=== PATIENT | male | born 1965 | race Caucasian/White ===

== ENCOUNTER 2024-09-25 07:04 | Emergency (ER) | payer BC, SELFPAY ==
[2024-09-25] VITALS (20 sets, daily range): BP systolic 111–150; BP diastolic 65–87; PULSE 81–110; RESP 9–23; TEMP 37.1; O2SAT 93–98; BMI 34.4
--- NOTE | 2024-09-25 07:39 | EKG_ITS ---
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
[2024-09-25 09:57] LABS: Add Manual Diff / Slide Review NO; Hematocrit 44.3 % (41-53); Hemoglobin 14.8 g/dL (13.5-17.5); Lymphocytes Absolute Auto 700 /uL (1100-4500); Mean Corpuscular HGB Conc 33.4 % (30-36); Mean Corpuscular Hemoglobin 32.1 PG (26-34); Mean Corpuscular Volume 96.2 fL (80-100); Platelet Count 186 X10^3/uL (150-400)
[2024-09-25 10:03] LABS: Alanine Aminotransferase 26 IU/L (<50); Albumin 4.1 g/dL (3.5-5.0); Albumin Globulin Ratio 1.3 (1.0-2.8); Alkaline Phosphatase 58 U/L (38-126); Blood Urea Nitrogen 10 mg/dL (9-20); Calcium 8.7 mg/dL (8.4-10.2); Carbon Dioxide 25 mmol/L (22-32); Chloride 101 mmol/L (98-107); Estimated Glomerular Filt Rate > 60 mL/min (>60); Globulin 3.1 g/dL (1.7-4.1); Glucose 111 mg/dL (70-99); HEMOLYSIS 24 (0-50); Lipase 62 U/L (23-300); Potassium 4.3 mmol/L (3.4-5.1); Sodium 135 mmol/L (137-145); Total Protein 7.2 g/dL (6.3-8.2)
--- NOTE | 2024-09-25 10:29 | DI.RAD.S_ITS ---
PROCEDURE: XR KUB INDICATIONS: abdominal discomfort TECHNIQUE: One view of the abdomen acquired. COMPARISON: None. FINDINGS: This study is limited by body habitus. Surgical changes and devices: A lap band is seen. Left pelvic laparoscopic anchors are seen. Bowel: Bowel gas pattern is normal. The volume of stool within the colon is not excessive. Soft tissues: Calcified gallstones are seen. Visualized solid organ contours appear normal in size. Bones: No suspicious bony lesions. Age-appropriate bony degenerative changes are seen. IMPRESSION: No debbi acute abnormality is seen by plain film. Gallstones are noted. Postoperative and degenerative changes are seen. Dictated by: Sky Lane M.D. on 09/25/2024 at 9:57 Approved by: Sky Lane M.D. on 09/25/2024 at 9:58
[2024-09-25 11:37] LABS: Culture Indicated Urine Specimen Cultured
[2024-09-25] MEDS: ACETAMINOPHEN 325 MG TABLET 975 MG PO (13:48)
--- NOTE | 2024-09-25 13:54 | DI.CT.S_ITS ---
PROCEDURE: CT ABDOMEN PELVIS W CON INDICATIONS: ying rectal pain and abdomen pain TECHNIQUE: After the administration of intravenous contrast, axial sections acquired from the lung bases to the pubic symphysis. Coronal and sagittal reformats were performed. For radiation dose reduction, the following was used: automated exposure control, adjustment of mA and/or kV according to patient size. COMPARISON: [facility], CR, XR KUB, 09/25/2024, 10:28. FINDINGS: Image quality: Diagnostic. Lower Chest: No significant findings. ABDOMEN: Liver: No solid mass. Gallbladder: Numerous gallstones are seen. No additional CT findings of cholecystitis are seen. Biliary ducts: No biliary dilation. Pancreas: No ductal dilation. Spleen: Size is within normal limits. Adrenal Glands: No adrenal nodules. Kidneys and Ureters: No hydronephrosis. No solid mass. No complex renal cystic lesion which requires follow up. Stomach and Bowel: A lap band is seen. The stomach is decompressed at the time of this study, limiting its evaluation. No dilated loops of small bowel are seen. In this patient with this given history, scrutiny is given to the rectum. No significant perirectal inflammatory change. No abnormal wall thickening is seen. Colonic diverticulosis is seen, without findings of active diverticulitis. A normal appendix is noted. Peritoneum: No abnormal intraperitoneal fluid. No free air. Ventral Wall: A mild to moderate periumbilical hernia is seen, containing fat. Abdominal Nodes: No retroperitoneal or mesenteric adenopathy by size criteria. Vessels: Aorta and inferior vena cava are normal in size. PELVIS: Pelvic Organs: The prostate is prominent, measuring 5.4 cm transversely. Bladder: No bladder wall thickening, accounting for underdistention. Pelvic Nodes: No enlarged lymph nodes. Miscellaneous: No inguinal hernias are seen. Bones: No aggressive osseous abnormality. Age-appropriate bony degenerative changes are seen. IMPRESSION: No significant perirectal abnormality is seen. Moderate sigmoid diverticulosis, without debbi active diverticulitis. Additional findings: Lap band Gallstones [id number] fat containing periumbilical hernia Dictated by: Sky Lane M.D. on 09/25/2024 at 13:26 Approved by: Sky Lane M.D. on 09/25/2024 at 13:30
--- NOTE | 2024-09-25 14:38 | PC.NURSE ---
Patient has been successfully ambulating between room and restroom and to diagnostic imaging independently.
--- NOTE | 2024-09-25 14:51 | ED_ITS ---
HPI - Abdominal Pain General Chief Complaint: Abdominal Pain Stated Complaint: Can't urinate or pass stool 3days Time Seen by Provider: 09/25/24 10:20 Source: patient Mode of arrival: Ambulatory History of Present Illness HPI narrative: 59-year-old male who has been having some difficulty urinating as well as having a BM in the past 2-3 days. He does still urinate and pass stool but not as much as he usually does. Currently he complains of some discomfort over his bladder area as well. He denies any blood in the urine or stool. He denies any other GI or symptoms. All other 14 point review of systems negative Related Data Allergies Allergy/AdvReac Type Severity Reaction Status Date / Time No Known Drug Allergies Allergy Verified 09/25/24 07:17 Review of Systems Review of Systems ROS Unobtainable: All systems reviewed & are unremarkable except as noted in HPI and below Patient History Social History Smoking Status: Never smoker Smoking Status: Never smoker Exam Narrative Exam Narrative: General: Patient appears to be in no acute distress, acting appropriately Head: normocephalic, atraumatic, HEENT: Pupils equal round reactive, eyes tracking well, neck supple, no JVD Heart: regular rate and rhythm, no murmurs, rubs, or gallops heard Lungs: clear to auscultation, no adventitious sounds Abdomen: soft , mildly tender to palpation over bladder area, nondistended, positive bowel sounds Neurological: no focal neurological signs, moving all extremities well, alert and oriented x3, Psych: good judgment ,good insight, mood is normal. Initial Vital Signs Initial Vital Signs: Vital Signs Temperature 98.8 F 09/25/24 07:17 Pulse Rate 110 H 09/25/24 07:17 Respiratory Rate 18 09/25/24 07:17 Blood Pressure 150/87 H 09/25/24 07:17 Pulse Oximetry 96 09/25/24 07:17 Oxygen Delivery Method Room Air 09/25/24 07:17 Course Course Course Narrative: We will workup the patient for this decrease in urination. CT abdomen and pelvis showed diverticulosis picture with gallstones. Patient's issue could potentially be from this diverticulosis. Orders Ordered: ED Orders 09/25/24 07:21 EKG-12 Lead Stat 09/25/24 07:28 Urine Culture Stat Urine Microscopic Stat 09/25/24 09:40 Complete Blood Count AUTO DIFF Stat Comprehensive Metabolic Panel Stat Lipase Stat 09/25/24 10:29 XR KUB Stat 09/25/24 13:54 CT abdomen pelvis w con Stat Sodium Chloride (Normal Saline 0.9%) 1,000 mls @ 1,000 mls/hr IV BOLUS ONE Stop: 09/25/24 15:53 Last Admin: 09/25/24 15:10 Dose: 1,000 mls/hr Documented By: JOHANA Ondansetron HCl (Ondansetron 4 Mg/2 Ml Inj) 4 mg IV NOW PRN PRN Reason: Nausea And Vomiting Ondansetron HCl (Ondansetron 4 Mg Odt) 4 mg PO NOW PRN PRN Reason: Nausea And Vomiting Discontinued Medications Acetaminophen (Acetaminophen 325 Mg Tablet) 975 mg PO NOW ONE Stop: 09/25/24 13:17 Last Admin: 09/25/24 13:48 Dose: 975 mg Documented By: BLAIR Polyethylene Glycol (Polyethylene Glycol 3350 17 Gm Powd.Pack) 17 gm PO NOW ONE Stop: 09/25/24 11:40 Last Admin: 09/25/24 13:00 Dose: 17 gm Documented By: RB Reevaluation(s) Reevaluation #1: Upon re-evaluation, patient is urinating better feels little bit more comfortable and is ready be discharged. Vital Signs Vital signs: Vital Signs - 8 hr 09/25/24 07:17 09/25/24 09:46 09/25/24 09:48 Temperature 98.8 F Pulse Rate 110 H 92 H 92 H Respiratory Rate 18 Blood Pressure 150/87 H Pulse Oximetry 96 96 96 Oxygen Delivery Method Room Air 09/25/24 09:48 09/25/24 10:00 09/25/24 10:00 Temperature Pulse Rate 88 Respiratory Rate 11 L Blood Pressure 128/76 119/69 Pulse Oximetry 95 Oxygen Delivery Method 09/25/24 10:30 09/25/24 10:30 09/25/24 11:07 Temperature Pulse Rate 91 H 89 Respiratory Rate 12 Blood Pressure 128/69 Pulse Oximetry 96 98 Oxygen Delivery Method 09/25/24 11:09 09/25/24 11:09 09/25/24 11:30 Temperature Pulse Rate 87 Respiratory Rate 11 L Blood Pressure 134/79 128/78 Pulse Oximetry 98 Oxygen Delivery Method 09/25/24 11:30 09/25/24 12:00 09/25/24 12:00 Temperature Pulse Rate 86 87 Respiratory Rate 14 14 Blood Pressure 139/77 Pulse Oximetry 98 96 Oxygen Delivery Method 09/25/24 12:30 09/25/24 12:31 09/25/24 12:31 Temperature Pulse Rate 87 96 H Respiratory Rate 16 14 Blood Pressure 132/73 Pulse Oximetry 97 97 Oxygen Delivery Method 09/25/24 13:18 09/25/24 13:19 09/25/24 13:19 Temperature Pulse Rate 97 H 94 H Respiratory Rate 23 19 Blood Pressure 141/70 H Pulse Oximetry 98 Oxygen Delivery Method 09/25/24 13:30 09/25/24 13:30 09/25/24 14:00 Temperature Pulse Rate 90 94 H Respiratory Rate 15 Blood Pressure 138/71 Pulse Oximetry 97 96 Oxygen Delivery Method 09/25/24 14:00 Temperature Pulse Rate Respiratory Rate Blood Pressure 125/76 Pulse Oximetry Oxygen Delivery Method MDM - Abdominal Pain Differential Diagnosis Differential diagnosis: Likely diverticulitis, gastroenteritis, small bowel obstruction and other (diverticulosis ) Lab Data 09/25/24 09:40 09/25/24 09:40 Labs: Lab Results 09/25/24 09/25/24 Range/Units 07:28 09:40 WBC 12.9 H (4.5-11.0) X10^3/uL RBC 4.61 (4.5-5.9) X10^6/uL Hgb 14.8 (13.5-17.5) g/dL Hct 44.3 (41-53) % MCV 96.2 (80-100) fL MCH 32.1 (26-34) PG MCHC 33.4 (30-36) % RDW 14.8 (11.6-14.8) % Plt Count 186 (150-400) X10^3/uL Neut % (Auto) 85.8 H (50-75) % Lymph % (Auto) 5.5 L (25-40) % [place] % (Auto) 8.1 (3-14) % Eos % (Auto) 0.1 L (2-4) % Baso % (Auto) 0.5 (0-2) % Neut # (Auto) 39424 H (5277-3972) /uL Lymph # (Auto) 700 L (0431-7355) /uL [place] # (Auto) 1000 H (0-900) /uL Eos # (Auto) 0 (0-450) /uL Baso # (Auto) 100 (0-100) /uL Sodium 135 L (137-145) mmol/L Potassium 4.3 (3.4-5.1) mmol/L Chloride 101 (98-107) mmol/L Carbon Dioxide 25 (22-32) mmol/L BUN 10 (9-20) mg/dL Creatinine 1.11 (0.66-1.25) mg/dL Estimated GFR > 60 (>60) mL/min BUN/Creatinine Ratio 9.0 (6-22) Glucose 111 H (70-99) mg/dL Calcium 8.7 (8.4-10.2) mg/dL Total Bilirubin 0.8 (0.2-1.3) mg/dL AST 35 (17-59) IU/L ALT 26 (<50) IU/L Alkaline Phosphatase 58 (38-126) U/L Total Protein 7.2 (6.3-8.2) g/dL Albumin 4.1 (3.5-5.0) g/dL Globulin 3.1 (1.7-4.1) g/dL Albumin/Globulin Ratio 1.3 (1.0-2.8) Lipase 62 (23-300) U/L Urine RBC 1-5/hpf (0-5/HPF) Urine WBC 5-10/hpf H (0-5/HPF) Ur Squamous Epith Cells None seen (0-5/HPF) Urine Bacteria Few (2-10) H (None) Ur Culture Indicated? Specimen cultured Vol Urine Centrifuged 10ml (spun) Point of care testing: Urine Dip Bedside Urine Glucose Negative Bedside Urine Bilirubin - Negative Bedside Urine Ketone +++ 80 Urine Specific [place] 1.010 Bedside Urine Occult Blood + Bedside Urine pH 7.0 Bedside Urine Protein +/- 15 Bedside Urine Urobilinogen - Negative Bedside Urine Nitrite - Negative Bedside Urine Leukocytes +/- [address] scan - abdomen/pelvis: Radiologist's Impression: No significant perirectal abnormality is seen. Moderate sigmoid diverticulosis, without debbi active diverticulitis. [facility] [place] Narrative Medical decision making narrative: 59-year-old male with a little bit of abdominal this current infarct and decreased urination presents with a sigmoid diverticulosis picture. Patient advised on going on a soft liquid diet for now until problems resolved. Patient also told to hydrate better as well. Discharge Plan Departure Patient Disposition: Home Clinical Impression: Diverticulosis Instructions: DI for Diverticulosis Activity Restrictions/Additional Instructions: Hydrate well and go on diverticulosis diet. Go on a soft liquid diet until problems resolved. Can follow up sooner if worsening issue. Stand Alone Forms: Patient Portal/API
[2024-09-25] MEDS: SODIUM CHLORIDE 0.9% 1,000 ML 1000 ML IV (15:10)
== END 2024-09-25 16:59 | disposition home or self-care (01) ==
PROVIDERS: Emergency Provider Family Medicine
DX: K57.90 Diverticulosis of intestine, part unspecified, without perforation or abscess without bleeding (principal)
CPT/HCPCS: 36415; 51798; 74018; 74177; 80053; 81003; 81015; 83690; 85025; 87086; 93005; 96360; 96361; 99284; Q9967